=== PATIENT | female | born 1950 | race Caucasian/White ===

== ENCOUNTER → 2016-11-21 | Day surgery (SDC) | payer OTHER ==
[~2016-11-21] MED LIST: BUPROPION XL300 MG PO; SIMVASTATIN20 MG PO; VITAMIN D2000 UNIT PO; ZESTRIL30 MG PO; ZOLOFT PO
--- NOTE | ~2016-11-21 | OR ---
Unit #: [id number] #: [id number] Patient: MARTHA COSBY [id number] [address] [id number] [id number] MR#: [id number] NAME: MARTHA COSBY ROOM: Date of Procedure: 11/21/2016 Admission Date: 11/21/2016 Surgeon: Eris Brown M.D. : 1950 Attending Physician: Eris Brown M.D. OPERATIVE REPORT PROCEDURE PERFORMED Colonoscopy to cecum. INDICATIONS FOR PROCEDURE A 66-year-old female with history of polyp, family history of polyp and colon cancer in sister and father, undergoing colonoscopy prior to surveillance. MEDICATIONS Monitored anesthesia. POSTOPERATIVE FINDINGS 1. Colonoscopy to cecum. Prep was good. No polyps, masses, or colitis was seen. 2. Diverticulosis. 3. Internal hemorrhoids. PLAN Repeat colonoscopy in 3 to 5 years. DESCRIPTION OF PROCEDURE The patient was explained of the procedure, risks, and benefits. She was brought to the endoscopy room. Propofol anesthesia was given. Rectal exam was done, which was normal. Colonoscope was lubricated, passed up the rectum, advanced under direct vision all the way to the cecum. Cecum was identified by ileocecal valve and appendiceal orifice. I then started to pull the scope out carefully looking. No polyps, masses, or colitis was seen. Diverticulosis was noted. I retroflexed in the rectum, small hemorrhoids noted. Gently, the scope was pulled out. She tolerated it well. Dictated by... Kristin Street/chepe TD: 11/21/2016 13:31 JOB #: [id number] CC: Marvin Lanza M.D. Unit #: [id number] #: [id number] Patient: MARTHA COSBY OPERATIVE REPORT Page 1 of 1 X Eris Brown MD X PROCEDURE OPERATIVE NOTE
== END | disposition home or self-care (01) ==
LOC: COPS 07:45
DX: Z12.11 Encounter for screening for malignant neoplasm of colon (principal); K57.30 Diverticulosis of large intestine without perforation or abscess without bleeding; K64.8 Other hemorrhoids; I10 Essential (primary) hypertension; E89.2 Postprocedural hypoparathyroidism; Z86.010 Personal history of colon polyps; Z80.0 Family history of malignant neoplasm of digestive organs; Z79.899 Other long term (current) drug therapy; Z98.51 Tubal ligation status; Z98.890 Other specified postprocedural states